=== PATIENT | male | born 1960 | race Caucasian/White ===

== ENCOUNTER → 2018-04-11 | Outpatient (CLI) | payer BC ==
--- NOTE | 2018-04-11 15:42 | MR ---
EXAMINATION TYPE: MR cervical spine wo con DATE OF EXAM: 04/11/2018 COMPARISON: None HISTORY: Neck Pain TECHNIQUE: Multiplanar, multisequence images of the cervical spine were acquired. C2-C3: No evidence for degenerative disc disease. No disc bulge/herniation or protrusion. No Canal stenosis. Foramina are patent bilaterally. C3-C4: No evidence for degenerative disc disease. No disc bulge/herniation or protrusion. No Canal stenosis. Foramina are patent bilaterally. C4-C5: Minimal disc bulge is present. Tiny amount central protrusion may be present. No cord contact is evident. No spinal canal stenosis present. Neural foramen have mild narrowing from uncovertebral j oint hypertrophy. C5-C6: There is a left paracentral large disc bulge with moderate anterior thecal sac compression. Th is has cord contact and cord deformity. Spinal canal stenosis posterior to the disc bulges 7 mm. Bila teral severe foraminal stenosis is present. C6-C7: Left paracentral disc bulge is present has anterior thecal sac contact. No cord deformity is e vident. No spinal canal stenosis is present. Moderate to severe bilateral foraminal narrowing is pres ent. C7-T1: Small central subligamentous disc herniation may be present. This is anterior thecal sac conta ct. No spinal canal stenosis is present. Neural foramen are patent. Disc desiccation is present. IMPRESSION: 1. Large left paracentral disc bulge and herniation C5-6 is moderate anterior thecal sac compression and stenosis posterior to the disc bulge. Cord deformity is present without signal abnormality within the cord. 2. Additional disc bulging C6-7 with cord contact without deformity. 3. Multilevel foraminal stenosis discussed above
== END | disposition home or self-care (01) ==
LOC: RADMRIMAIN 06:10
PROVIDERS: ATTEND Nurse Practitioner Family
DX: M48.02 Spinal stenosis, cervical region (principal); M99.71 Connective tissue and disc stenosis of intervertebral foramina of cervical region; M50.23 Other cervical disc displacement, cervicothoracic region
CPT/HCPCS: 72141

== ENCOUNTER → 2021-09-01 | Outpatient (CLI) | payer BC ==
--- NOTE | 2021-09-01 07:58 | US ---
EXAMINATION TYPE: US carotid duplex BILAT DATE OF EXAM: 09/01/2021 COMPARISON: None CLINICAL HISTORY: 61-year-old male R55 SYNCOPE AND COLLAPSE. Patient fell. HTN controlled with meds. TECHNIQUE: Carotid duplex ultrasound examination. Indirect Doppler criteria is visualized. FINDINGS: EXAM MEASUREMENTS: RIGHT: Peak Systolic Velocity (PSV) cm/sec ----- Right CCA: 93.5 ----- Right ICA: 79.3 ----- Right ECA: 87.9 ICA/CCA ratio: 0.9 RIGHT: End Diastole cm/sec ----- Right CCA: 29.2 ----- Right ICA: 22.7 ----- Right ECA: 15.4 LEFT: Peak Systolic Velocity (PSV) cm/sec ----- Left CCA: 96.8 ----- Left ICA: 33.0 ----- Left ECA: 26.1 ICA/CCA ratio: 1.1 LEFT: End Diastole cm/sec ----- Left CCA: 26.6 ----- Left ICA: 33.0 ----- Left ECA: 26.1 VERTEBRALS (direction of flow): Right Vertebral: Antegrade Left Vertebral: Antegrade Rhythm: Normal Rocket Scientist notes: No elevated velocities. Mild atherosclerotic plaque at the right bifurcation. IMPRESSION: No hemodynamically significant internal carotid artery stenosis on either side. Criteria for Assigning % of Stenosis / Diameter reduction (Estimation based on the indirect measurements of the internal carotid artery velocities (ICA PSV). 1. Normal (no stenosis)=ICA PSV < 125 cm/s: ratio < 2.0: ICA EDV<40 cm/s. 2. Less than 50% stenosis=ICA PSV < 125 cm/s: ratio < 2.0: ICA EDV<40 cm/s. 3. 50 to 69% stenosis=ICA PSV of 125 to 230 cm/s: ration 2.0 ? 4.0: ICA EDV 40-100 cm/s. 4. Greater than 70% stenosis to near occlusion= ICA PSV > 230 cm/s: ratio > 4.0: ICA EDV > 100 cm/s. 5. Near occlusion= ICA PSV velocities may be low or undetectable: variable ratio and ICA EDV. 6. Total occlusion=unable to detect flow.
--- NOTE | 2021-09-01 08:09 | CT ---
EXAMINATION TYPE: CT brain wo con DATE OF EXAM: 09/01/2021 HISTORY: Head injury and syncope. CT DLP: 1216 mGycm. Automated Exposure Control for Dose Reduction was Utilized. TECHNIQUE: CT scan of the head is performed without contrast. COMPARISON: None. FINDINGS: There is no acute intracranial hemorrhage or midline shift identified. Ventricles and sul ci within normal limits in size for patient's age. Cedillo-white matter differentiation maintained. 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 Cckd-xn-vbclohil muco jenna thickening and patchy opacification involving ethmoid sinuses bilaterally. Mild/moderate mucosa l thickening involving bilateral maxillary sinuses left greater than right. Some patchy fluid in the right sphenoid sinus axial image 15. Globes are intact bilaterally. No suspicious opacification masto id air cells. IMPRESSION: No acute intracranial hemorrhage or midline shift. Acute on chronic paranasal sinus dise ase is present. Correlate clinically.
== END | disposition home or self-care (01) ==
LOC: RADCTMAIN 07:07
PROVIDERS: ATTEND Family Medicine
DX: S09.90XA Unspecified injury of head, initial encounter (principal); J34.89 Other specified disorders of nose and nasal sinuses; I10 Essential (primary) hypertension; W19.XXXA Unspecified fall, initial encounter
CPT/HCPCS: 70450; 93880

== ENCOUNTER → 2021-09-10 | Outpatient (CLI) | payer BC ==
--- NOTE | 2021-09-10 15:00 | ECHOF ---
Referral Reason:R55 syncope and collapse MEASUREMENTS -------- HEIGHT: 175.3 cm WEIGHT: 83.9 kg BP: 156/77 RVIDd: 3.1 cm (< 3.3) IVSd: 1.1 cm (0.6 - 1.1) LVIDd: 5.6 cm (3.9 - 5.3) LVPWd: 0.9 cm (0.6 - 1.1) IVSs: 1.6 cm LVIDs: 3.3 cm LVPWs: 1.8 cm LA Diam: 3.1 cm (2.7 - 3.8) LAESV Index (A-L): 20.53 ml/m Ao Diam: 3.2 cm (2.0 - 3.7) AV Cusp: 2.3 cm (1.5 - 2.6) MV EXCURSION: 20.477 mm (> 18.000) MV EF SLOPE: 99 mm/s (70 - 150) EPSS: 0.2 cm MV E Gino: 0.56 m/s MV DecT: 354 ms MV A Gino: 0.62 m/s MV E/A Ratio: 0.91 FINDINGS -------- Resting bradycardia (HR<60bpm). This was a technically adequate study. The left ventricular size is normal. There is borderline concentric left ventricular hypertrophy. Overall left ventricular systolic function is normal with, an EF between 55 - 60 %. The right ventricle is normal in size. Normal LA size by volume 22+/-6 ml/m2. The right atrium is normal in size. Interatrial and interventricular septum intact. The aortic valve is trileaflet, and appears structurally normal. No aortic stenosis or regurgitation. The mitral valve is normal. The tricuspid valve appears structurally normal. Unable to estimate RVSP due to inadequate TR jet s pectral doppler profile. The pulmonic valve was not well visualized. The aortic root size is normal. Normal inferior vena cava with normal inspiratory collapse consistent with estimated right atrial pre ssure of 5 mmHg. There is no pericardial effusion. CONCLUSIONS -------- 1. The left ventricular size is normal. 2. There is borderline concentric left ventricular hypertrophy. 3. Overall left ventricular systolic function is normal with, an EF between 55 - 60 %. 4. The aortic valve is trileaflet, and appears structurally normal. No aortic stenosis or regurgitati on. 5. There is no pericardial effusion. CHIEF II DISPATCHER: Hawa Montana RDCS
== END | disposition home or self-care (01) ==
LOC: RADECHMAIN 13:51
PROVIDERS: ATTEND Family Medicine
DX: I51.7 Cardiomegaly (principal); R55 Syncope and collapse
CPT/HCPCS: 93306

== ENCOUNTER → 2022-05-06 | Outpatient (CLI) | payer BC ==
--- NOTE | 2022-05-06 10:53 | CA ---
Stress Echo Report Jono Stanton Age: 61 Gender: M : 1960 Exam Date: 05/06/2022 09:40 Exam Location: [facility] Ht (in): 69 Wt (lb): 179 Ordering Physician: Kenan Almanzra DO Referring Physician: SAMREEN,, Engineer Station Mainline: BARBIE Technologist Procedure CPT: Indication: R55 Syncope, R06.02 SOB ICD-9 Codes: Rhythm: Patient History: HTN, ELEVATED CHOLESTEROL, FAMILY HX OF HEART DISEASE, CURRRENT SMOKER (1 PPD X 30 YEARS) PRIOR CARDIAC CATHETERIZATION Cardiac Medications: ATORVASTATIN, CoQ10, MULTIVITAMIN, ANALIPRIL Medications in past 24 hours: Contrast: Stress Results Protocol: Vance Total dose(mL): Exercise Duration (min:sec): Max ST Depression (mm): Angina Score: Godfrey Score: METS: 12.1 Resting HR: 73 Resting BP: 136 / 80 Peak HR: 121 Peak BP: 202 / 70 Max Predicted HR: 160 76 % Max Predicted HR Target HR: 136 Double Product: [id number] Stress Summary: The patient's target heart rate was not achieved BP Response: Normal Reason for Termination: Maximal effort/unable to continue Cardiac Symptoms: Dyspnea ECG Analysis Resting ECG: Normal sinus rhythm Stress ECG: No abnormal ST/T wave changes with exercise Arrhythmia: Occasional PVCs Echo Analysis Resting Echo: Normal resting echocardiogram. Peak Echo Analysis: Normal global and regional wall motion with stress with a left ventricular ejection fraction of 60- 65 %. MEASUREMENTS (Male/Female) Normal Values CONCLUSIONS No ECG evidence of ischemia with exercise. Normal treadmill stress echocardiogram at the rate achieved, the patient achieved 76% of maximum predicted heart rate. Good exercise tolerance with occasional PVCs and couplets at peak exercise Dr. Zora Aguayo MD (Electronically Signed) Final Date: 06 May 2022 10:53
== END | disposition home or self-care (01) ==
LOC: RADNMMAIN 09:08
PROVIDERS: ATTEND Internal Medicine
DX: R55 Syncope and collapse (principal); R06.02 Shortness of breath
CPT/HCPCS: 93351

== ENCOUNTER 2022-05-28 06:31 | Day surgery (SDC) | payer BC ==
[2022-05-28] MEDS ORDERED: ASPIRIN 325 MG TAB PO STA (06:33)
[2022-05-28] MEDS ORDERED: HEPARIN SODIUM,PORCINE 10,000 UNIT in SODIUM CHLORIDE 0.9% 1,000 ML IRRIGATION PRN (06:33)
[2022-05-28] MEDS ORDERED: ALPRAZolam 0.25 MG TAB PO PRN (06:33)
[2022-05-28] MEDS ORDERED: SODIUM CHLORIDE 0.9% 1,000 ML in EMPTY BAG 1 BAG IV SCH (06:33)
[2022-05-28] MEDS ORDERED: NITROGLYCERIN SL TABS 0.4 MG TAB SUBLINGUAL PRN (06:33)
[2022-05-28] MEDS ORDERED: ATORVASTATIN 80 MG TAB PO STA (06:33)
[2022-05-28] MEDS ORDERED: SODIUM CHLORIDE 0.9% 1,000 ML IV SCH (06:33)
[2022-05-28] MEDS ORDERED: ALPRAZolam 0.5 MG TAB PO PRN (06:33)
[2022-05-28] MEDS ORDERED: HEPARIN SODIUM,PORCINE 2,500 UNIT in SODIUM CHLORIDE 0.9% 250 ML IRRIGATION PRN (06:33)
[2022-05-28] MEDS ORDERED: SODIUM CHLORIDE 0.9% 1,000 ML IV ONE (06:44)
[2022-05-28 07:02] VITALS: RESP 16; TEMP 97.1
[2022-05-28] MEDS ORDERED: fentaNYL (PF) 50 MCG/ML 2 ML AMP IV ONE (07:41)
[2022-05-28] MEDS ORDERED: MIDAZOLAM 2 MG/2 ML VIAL IV ONE (07:41)
[2022-05-28] MEDS ORDERED: LIDOCAINE 1% INJ 10MG/ML (30 ML VIAL-PF) SQ ONE (07:42)
[2022-05-28] MEDS ORDERED: VERAPAMIL SYRINGE (5 MG/10 ML) INTRAARTER ONE (07:45)
[2022-05-28] MEDS ORDERED: HEPARIN SODIUM 1,000 UN/ML (10ML VL) IV ONE ×2 (07:46)
--- NOTE | 2022-05-28 08:17 | P.CARDCATH ---
Description of Procedure: PROCEDURES PERFORMED: Left heart catheterization, bilateral coronary angiography, Linq loop recorder placement INDICATION: Syncope concerning for cardiogenic source HISTORY: Patient is a pleasant 61-year-old male with history of PVC's syncope 2 somewhat concerning for cardiogenic source with no prodrome who underwent stress test which was inadequate secondary to not reaching 85% maximum predicted heart rate. Therefore definitive diagnosis with heart catheterization was recommended. Also discussed if heart catheterization unrevealing recommendations for loop recorder placement for further monitoring of any arrhythmias. CONSENT:I have discussed the risks, benefits and alternative therapies for the above-mentioned procedure and for both sedation/analgesia as well as necessary blood product administration, if indicated, as they pertain to this patient. The patient has indicated understanding and acceptance of the risks and procedures discussed. PROCEDURE: After the risks, benefits and alternatives of the above mentioned procedure explained in detail with the patient, informed consent was obtained. Patient was taken to the catheterization lab and prepped and draped in usual fashion. 1% lidocaine was used to anesthetize the right radial artery. A 6- Malagasy sheath was placed in the right radial artery using modified Seldinger technique. Left coronary angiography was performed with a 5-Malagasy JL 3.5 catheter and right coronary angiography was performed with a 5-Malagasy JR5 catheter in various views. A 5-Malagasy FR5 catheter was inserted into the left ventricle and pressure measurements were obtained. The right radial sheath was removed and a TR band was placed with hemostasis achieved. Given only mild CAD recommendations were for loop recorder placement. 1% lidocaine was used to anesthetize the area of the left third intercostal space. Using the loop recorder incision device, a small 0.5 cm incision was made in the left 3rd intercostal space. Next the Linq loop recorder was deployed in the 3rd intercostal space subcutaneously using the insertion tool. Thresholds were checked and were excellent at 0.3V. Next the incision was closed using Dermabond. Steristrips were placed over the incision and the procedure was completed. The patient tolerated the procedure well. The patient was transported to the post cath holding area in stable condition. Linq loop recorder serial number: [id number] The patient tolerated the procedure well. Patient was transported back to the post catheterization holding area in stable condition. Conscious Sedation: Patient was monitored under the direct supervision of vision of myself for conscious sedation using Versed and fentanyl for a total duration of 33 minutes HEMODYNAMICS: Aorta: 142/77 LV: 115/8, LVEDP 16 SELECTIVE CORONARY ARTERIOGRAPHY: LEFT MAIN: The left main is a large caliber vessel which bifurcates into the LAD and circumflex. There is no significant stenosis. LEFT ANTERIOR DESCENDING CORONARY ARTERY: LAD is a large caliber vessel which wraps around to the apex. There is a mid LAD 30-40% stenosis and otherwise mild luminal irregularities. LEFT CIRCUMFLEX CORONARY ARTERY: Left circumflex is a moderate caliber vessel with mild luminal irregularities. RIGHT CORONARY ARTERY: The right coronary artery is a large caliber vessel which gives off a PDA and PLV branch and is the dominant vessel. There are mild luminal irregularities of the RCA. FINAL IMPRESSION: 1. Mild CAD as described above including mild luminal irregularities of the RCA and circumflex and a mid LAD 30-40% stenosis. 2. Normal left sided filling pressures 3. S/p Linq loop recorder placement PLAN: 1. Aggressive risk factor modification per most recent ACC/AHA guidelines. 2. Follow-up in the office in 1-2 weeks. 3. Continue with routine loop recorder monitoring.
[2022-05-28] MEDS ORDERED: IOPAMIDOL-370 125ML BTL INJ ONE (08:22)
[2022-05-28 12:01] VITALS: BP 145/92; PULSE 60
== END 2022-05-28 12:02 | disposition home or self-care (01) ==
LOC: CATHCVL 06:31
PROVIDERS: ATTEND Internal Medicine
DX: I25.10 Atherosclerotic heart disease of native coronary artery without angina pectoris (principal); R55 Syncope and collapse; I10 Essential (primary) hypertension; E78.5 Hyperlipidemia, unspecified; R09.02 Hypoxemia
CPT/HCPCS: 93458; 33285; C1769; C1894; C1764; J2250; J0690; J2001; J3010; J1644; Q9967

== ENCOUNTER → 2023-02-15 | Outpatient (CLI) | payer BC ==
--- NOTE | 2023-02-15 10:26 | CTL ---
EXAMINATION TYPE: CT Low Dose Lung DATE OF EXAM ORDERED: 02/15/2023 COMPARISON: None HISTORY: . Low Dose CT Lung Screening CT DLP: [address] CTDI: 2.1 mGy IV CONTRAST USED: None. SCREENING VISIT: First visit COMPARISON: None. TECHNIQUE: Low dose computed tomography scan was performed through the chest at 1 millimeter thick se ctions and reconstructed images in the coronal plane at [address] DIAGNOSTIC QUALITY: Satisfactory FINDINGS: LUNG NODULES: Not presentLeft lung: no nodules identified.Right lung: no nodules identified. LUNGS: COPD: Severity: Mild Fibrosis: Severity:None Lymph nodes: None Other findings: None RIGHT PLEURAL SPACE: Effusion: None Calcification: None Thickening: None Pneumothorax: None LEFT PLEURAL SPACE: Effusion: None Calcification: None Thickening: None Pneumothorax: None HEART: Heart Size: Mildly enlarged Coronary calcification: Mild Pericardial effusion: None OTHER FINDINGS: Upper abdomen: No significant abnormality Bony thorax: Degenerative changes Supraclavicular region: No significant abnormality Other: There is masslike appearance left upper quadrant which could reflect unopacified bowel or I ca nnot exclude an underlying mass. Contrast enhanced CT of the abdomen and pelvis with intravenous and GI contrast is advised. IMPRESSION: 1.There is masslike appearance left upper quadrant which could reflect unopacified bowel or I cannot exclude an underlying mass. Contrast enhanced CT of the abdomen and pelvis with intravenous and GI co ntrast is advised. 2. No pulmonary nodules seen. FOLLOW UP CT CHEST RECOMMENDATION: Follow-up screening in one year CT LUNG RAD: LUNG RAD CATEGORY category 1 negative
== END | disposition home or self-care (01) ==
LOC: RADCTMAIN 09:06
PROVIDERS: ATTEND Family Medicine
DX: Z12.2 Encounter for screening for malignant neoplasm of respiratory organs (principal); F17.210 Nicotine dependence, cigarettes, uncomplicated
CPT/HCPCS: 71271

== ENCOUNTER → 2024-01-18 | Outpatient (CLI) | payer BC ==
--- NOTE | 2024-01-19 10:15 | CTL ---
EXAMINATION TYPE: CT Low Dose Lung DATE OF EXAM ORDERED: 01/18/2024 HISTORY: Tobacco use. Lung cancer screening CT DLP: 108.[address] CTDI: 2.8 mGy Automated exposure control for dose reduction was used. SCREENING VISIT: Subsequent COMPARISON: 02/15/2023 TECHNIQUE: Low dose computed tomography scan was performed through the chest at 1 mm thick sections a nd reconstructed images in the coronal plane at [address] DIAGNOSTIC QUALITY: Satisfactory FINDINGS: LUNG NODULES: None. LUNGS: COPD: Severity: Mild Fibrosis: Severity: None Lymph nodes: None Other findings: None RIGHT PLEURAL SPACE: Effusion: None Calcification: None Thickening: None Pneumothorax: None LEFT PLEURAL SPACE: Effusion: None Calcification: None Thickening: None Pneumothorax: None HEART: Other: Ascending thoracic aorta at the level the main pulmonary artery measures 4.0 cm. The main pul monary artery at the bifurcation measures 2.9 cm. Heart Size: Normal Coronary calcification: Moderate Pericardial effusion: None OTHER FINDINGS: Upper abdomen: Extensive cysts are present. The visualized upper pole left kidney. Consider polycysti c kidney disease. Bony thorax: Normal Supraclavicular region: Normal IMPRESSION: 1. No suspicious changes to suggest primary or metastatic neoplasm. 2. Ascending thoracic aortic aneurysm 4.0 cm. 3. Large cystlike area within the upper pole left kidney region. Polycystic kidney should be consider ed. FOLLOW UP CT CHEST RECOMMENDATION: Follow-up CT chest in one year CT LUNG RAD: Lung-Rad 1 Negative
== END | disposition home or self-care (01) ==
LOC: RADCTMAIN 06:39
PROVIDERS: ATTEND Family Medicine
DX: Z12.2 Encounter for screening for malignant neoplasm of respiratory organs (principal); I71.21 Aneurysm of the ascending aorta, without rupture; F17.210 Nicotine dependence, cigarettes, uncomplicated
CPT/HCPCS: 71271

== ENCOUNTER → 2024-02-16 | Outpatient (CLI) | payer BC ==
[2024-02-16 09:04] LABS: African American GFR (CKD) >90 (>60 ml/min/1.73 sqM); Blood Urea Nitrogen 20 mg/dL (9-20); Non-African American GFR(CKD) >90 (>60 ml/min/1.73 sqM)
--- NOTE | 2024-02-16 11:30 | CT ---
EXAMINATION TYPE: CT angio chest CT DLP: 720.70 mGycm, Automated exposure control for dose reduction was used. DATE OF EXAM: 02/16/2024 11:19 AM COMPARISON: CT low-dose lung cancer screening 01/18/2024, 02/15/2023. CLINICAL INDICATION:Male, 63 years old with history of I71.20 THORACIC AORTIC ANEURYSM, WITHOUT RUPTU RE; Thoracic aortic aneurysm w/out rupture. TECHNIQUE/CONTRAST: CTA scan of the thorax is performed before and after the uneventful administration of 100 mL of Isovu e-370 intravenously. Mip and 3-D images were created and a separate workstation. FINDINGS: Lungs/Pleura: No evidence of focal consolidation, pleural effusion or pneumothorax. Bibasilar depende nt subsegmental atelectasis. Mild centrilobular emphysematous changes. Airway: Large airways are patent. Heart: Heart is within normal limits for size.. Mild to moderate coronary artery calcifications. Most prominent within the LAD. No pericardial effusion. Vasculature: Ectasia of the ascending thoracic aorta measures 3.9 cm, previously measured 4.0 cm. No evidence for intramural hematoma or dissection. The aortic root measures 3.6 cm. The descending thora cic aorta measures up to 2.8 cm. Bovine arch configuration. No evidence for pulmonary embolism. Mediastinum: No gross evidence of adenopathy. Musculoskeletal: No acute osseous abnormalities. Anterior cervical fusion hardware. Multilevel degene rative disc disease. Soft Tissues: Left anterior chest wall loop recorder. Lower neck: No significant findings. Upper Abdomen: Large multicystic appearance of the visualized left kidney again demonstrated. Polycys tic kidney again should be considered. No significant cysts identified within the visualized portion of the right kidney. IMPRESSION: 1. Stable ectasia of the ascending thoracic aorta measuring up to 3.9 cm, previously measured 4.0 cm. No evidence for intramural hematoma or dissection. 2. Large multicystic appearance of the left kidney again demonstrated. Polycystic kidney should be co nsidered.
== END | disposition home or self-care (01) ==
LOC: RADCTMAIN 08:17
PROVIDERS: ATTEND Family Medicine
DX: I71.20 Thoracic aortic aneurysm, without rupture, unspecified (principal)
CPT/HCPCS: 82565; 84520; 71275; 36415; Q9967

== ENCOUNTER 2024-05-26 12:28 | Day surgery (SDC) | payer BC ==
[2024-05-24 17:51] VITALS: BMI 27.8
[~2024-05-26 12:28] MED LIST: LIDOCAINE 1% (10MG/ML) FOR IV START INTRADERMA PRN
[2024-05-26] MEDS: IV FLUID CONTINUATION 1,000 ML IV ONE (13:36)
[2024-05-26] MEDS: LACTATED RINGERS 1,000 ML IV SCH (13:46)
[2024-05-26 13:50] VITALS: RESP 16; TEMP 97
[2024-05-26] MEDS ORDERED: PROPOFOL 10 MG/ML 20 ML VIAL IV ONE (14:49)
--- NOTE | 2024-05-26 15:11 | P.PCN ---
Date of Procedure: 05/26/24 Procedure(s) Performed: BRIEF HISTORY: Patient is a 63-year-old pleasant white male scheduled for an elective colonoscopy as a part of screening for colon cancer/positive Cologuard PROCEDURE PERFORMED: Colonoscopy with biopsy and snare polypectomy PREOPERATIVE DIAGNOSIS: Screening for colon cancer/positive Cologuard. IV sedation per Anesthesia. PROCEDURE: After informed consent was obtained, the patient, was brought into the endoscopy unit. IV sedation was administered by Anesthesia under continuous monitoring. Digital rectal examination was normal. Initially the Olympus CF-160 flexible video colonoscope was then inserted in the rectum, gradually advanced into the cecum without any difficulty. Careful examination was performed as the scope was gradually being withdrawn. Ileocecal valve and the appendiceal orifice were visualized and appeared normal. Prep was excellent. Mucosa of the cecum, appeared normal. The ascending colon there was a 3 mm and 4 mm polyp that was removed by cold biopsy. In the hepatic flexure there was a 6 mm flat polyp removed by cold snare polypectomy. Rest of the ascending colon, transverse colon, descending colon, sigmoid colon, and rectum appeared normal. Scattered sigmoid diverticulosis. Retroflexion was performed in the rectum and no lesions were seen. The patient tolerated the procedure well. IMPRESSION: 3 mm and 4 mm ascending colon polyp status post cold biopsy 8 mm flat hepatic flexure polyp status post cold snare polypectomy Scattered sigmoid diverticulosis RECOMMENDATIONS: Findings of this examination were discussed with the patient as well as his family. He was advised to follow-up with the biopsy results. If the biopsy reveals adenoma he can have repeat colonoscopy in 5 years..
[2024-05-26 15:41] VITALS: BP 157/94; PULSE 57
== END 2024-05-26 15:44 | disposition home or self-care (01) ==
LOC: ORWHC2ENDO 12:28
PROVIDERS: ATTEND Internal Medicine Gastroenterology
DX: Z12.11 Encounter for screening for malignant neoplasm of colon (principal); D12.2 Benign neoplasm of ascending colon; D12.3 Benign neoplasm of transverse colon; R19.5 Other fecal abnormalities; K57.30 Diverticulosis of large intestine without perforation or abscess without bleeding; Z79.899 Other long term (current) drug therapy
CPT/HCPCS: 88305; 45380; 45385; J2704

== ENCOUNTER → 2024-10-12 | Outpatient (CLI) | payer BC ==
--- NOTE | 2024-10-12 11:38 | MR ---
MRI CERVICAL SPINE: CLINICAL HISTORY: Neck pain that radiates down left arm. Radiculopathy. TECHNIQUE: Multiplanar, multisequence imaging of the cervical spine is performed without IV contrast. COMPARISON: Prior MRI cervical spine April 11, 2018 FINDINGS: Sagittal images of the cervical spine show the craniocervical junction to remain within nor mal limits. The cervical and upper thoracic spinal cord remains normal in course, caliber, and signa l. Vertebral alignment is stable and satisfactory. There is new susceptibility artifact from anteri or fusion plate and metallic disc material at C5-C7 levels. The vertebral body heights are normal abo ve and below surgical levels. There is new mild disc space narrowing at C7-T1 level. The bone marrow signal intensity is within normal limits above and below surgical levels. Slight scoliotic curvature is seen. Axial images show C2-C3 level to remain within normal limits. Axial images at C3-C4 level show new uncovertebral facet degenerative changes bilaterally causing mil [id number] right and moderate to severe left-sided neural foraminal narrowing. Axial images at C4-C5 level redemonstrate left foraminal spur disc complex causing advanced left-side d neural foraminal narrowing similar to prior. Axial images at C5-C6 and C6-C7 levels show new susceptibility artifact from surgical change. There i s persistent bilateral moderate to severe neural foraminal narrowing at these levels. There is persis tent but less prominent effacement of the anterior spinal canal at several levels probably due to bon y projections for example left paracentral level axial image 25. Axial images at C7-T1 level show new focal left paracentral disc protrusion effacing anterior thecal sac. Bilateral neural foramina are patent. IMPRESSION: Interval surgical change at C5-C7 levels. Alignment is stable and satisfactory. There is improvement in the spinal canal or neural effacement particularly at C5-C6 level left or surgery. The re are however stable and new/more prominent multilevel degenerative changes present as detailed selvin e. [facility], , 10/12/2024 11:35 AM
== END | disposition home or self-care (01) ==
LOC: RADMRIMAIN 10:44
PROVIDERS: ATTEND Family Medicine
DX: M50.13 Cervical disc disorder with radiculopathy, cervicothoracic region (principal); M47.22 Other spondylosis with radiculopathy, cervical region
CPT/HCPCS: 72141

== ENCOUNTER → 2024-12-07 | Outpatient (CLI) | payer BC ==
--- NOTE | 2024-12-07 21:39 | CT ---
EXAMINATION TYPE: CT cervical spine wo con DATE OF EXAM: 12/07/2024 6:43 PM COMPARISON: None. CLINICAL INDICATION: Male, 64 years old with history of M43.22,M62.81,M48.02, Neck/shoulder pain x1 y ear, hx of c5-7 fusion., pain TECHNIQUE: CT of the cervical spine is performed in the axial plane at 2 mm thick sections. Reconstr ucted images in the coronal, and sagittal plane are reviewed on the computer. Contrast used: mL of , (none if empty) Oral contrast used: (none if empty) CT DLP: 428.9 mGycm, Automated exposure control for dose reduction was used. FINDINGS: No acute fractures are evident. Vertebral body alignment is normal. Anterior cervical fusion is present C5-C7. Mild disc space narrowing is present at C4-5. Disc spaces are present C5-6 C6-7. There is narrowing o f disc height C7-T1. Vertebral body heights are preserved. No spinal canal stenosis is evident. Endplate spurring is present posteriorly at C4-5 C5-6 C6-7. Smal l anterior vertebral body spurs present C4 inferior endplate. Mild left foraminal narrowing from uncovertebral joint hypertrophy is present at C2-3, C3-4 moderate left foraminal stenosis C4-5. Bilateral foraminal stenosis is present C5-6 and C6-7. IMPRESSION: 1. Foraminal stenosis greatest bilateral C5-6 C6-7. 2. Anterior cervical fusion C5-C7. 3. Mild to moderate foraminal narrowing upper cervical spine discussed above. 4. Mild degenerative disc changes present [facility], Workstation: [facility], 12/07/2024 9:37 PM
== END | disposition home or self-care (01) ==
LOC: RADCTMAIN 18:09
PROVIDERS: ATTEND Orthopaedic Surgery
DX: M47.812 Spondylosis without myelopathy or radiculopathy, cervical region (principal); M43.22 Fusion of spine, cervical region; M62.81 Muscle weakness (generalized); M48.02 Spinal stenosis, cervical region; M99.71 Connective tissue and disc stenosis of intervertebral foramina of cervical region; M50.321 Other cervical disc degeneration at C4-C5 level
CPT/HCPCS: 72125